=== PATIENT | male | born 2005 ===

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

== ENCOUNTER → 2024-01-09 | Outpatient (REF) | LOC: M EMP 08:51 | PROVIDERS: ATTEND Family Medicine | DX: Z01.89 Encounter for other specified special examinations (principal) ==

== ENCOUNTER → 2024-01-09 | Outpatient (REF) | LOC: M EMP 09:33 | PROVIDERS: ATTEND Family Medicine | DX: Z11.52 Encounter for screening for COVID-19 (principal) ==